=== PATIENT | female | born 1945 | race Caucasian/White ===

== ENCOUNTER → 2017-01-17 | Outpatient (CLI) | payer BC ==
[~2017-01-17] MED LIST: ASPEC81 PO; CRG25 PO; ESCI1TAB10 PO; GLC500 PO; HYDC25 PO; MOME50SP5; MTRUNK PO; PANT40TA PO; SIMV40TA2 PO
--- NOTE | 2017-01-17 14:28 | MAMMOGRAPHY REPORT ---
BILATERAL DIGITAL SCREENING MAMMOGRAM WITH CAD: 01/17/2017 CLINICAL HISTORY: Routine screening. Patient has no complaints. TECHNIQUE: Bilateral CC and MLO views were obtained. Current study was also evaluated with a Comput er Aided Detection (CAD) system. COMPARISON: Comparison is made to exams dated: 01/13/2016 mammogram, 01/09/2015 mammogram, 01/09/2015 ultrasound - [facility], 03/04/2009, and 11/23/2006. BREAST COMPOSITION: The tissue of both breasts is almost entirely fatty. FINDINGS: The parenchymal pattern is unchanged. No developing mass, architectural distortion or clu ster of suspicious microcalcifications is seen in either breast. IMPRESSION: ACR BI-RADS CATEGORY 2: BENIGN There is no mammographic evidence of malignancy. A 1 year screening mammogram is recommended. The p atient will receive written notification of the results. Approximately 10% of breast cancers are not detected with mammography. A negative mammographic repor t should not delay biopsy if a clinically suggestive mass is present. Bobbi Lopez M.D. ay/:01/17/2017 14:04:40 Electric Motor Assembler: Doris WOOD(Susanna)(Ramirez), [facility] letter sent: Normal 1/2 BI-RADS Code: ACR BI-RADS Category 2: Benign
== END | disposition home or self-care (01) ==
LOC: C.MAMM 08:00
PROVIDERS: ATTEND Family Medicine
DX: Z12.31 Encounter for screening mammogram for malignant neoplasm of breast (principal)

== ENCOUNTER → 2017-01-24 | Outpatient (CLI) | payer BC ==
[~2017-01-24] MED LIST changes: +ASPI81TA28 PO; +ATOR-24 PO; +CARV25TA PO; +CLOP1TAB15 PO; +HYDR12.55 PO; +IRBE1TAB48 PO; +METF1TAB53 PO; +MISC1TAB85 PO; +MULT-506 PO; +SERT1TAB88 PO
--- NOTE | 2017-01-24 13:33 | DIAGNOSTIC IMAGING REPORT ---
RIGHT SHOULDER MIN 2 VIEWS CLINICAL HISTORY: RIGHT SHOULDER PAIN Right pain COMPARISON: None. DISCUSSION: The bones and joint spaces appear intact. There is no evidence of fracture, dislocation or bony disease. There is no evidence for soft tissue swelling. IMPRESSION: Negative study. Electronically signed by: Coleman David M.D. 01/24/2017 1:32 PM Dictated Date/Time: 01/24/2017 1:32 PM
== END | disposition home or self-care (01) ==
LOC: C.RDSM 13:26
PROVIDERS: ATTEND Family Medicine
DX: M25.519 Pain in unspecified shoulder (principal)

== ENCOUNTER 2017-09-23 22:02 | Inpatient (IN) | payer BC, OTHER ==
[~2017-09-23] VITALS: Ht 157.5 cm; Wt 92.3 kg
[~2017-09-23 22:02] MED LIST changes: -ASPI81TA28 PO; -ATOR-24 PO; -CARV25TA PO; -CLOP1TAB15 PO; -HYDR12.55 PO; -IRBE1TAB48 PO; -METF1TAB53 PO; -MISC1TAB85 PO; -MULT-506 PO; -SERT1TAB88 PO
--- NOTE | 2017-09-23 22:32 | EMERGENCY ROOM VISIT NOTE ---
History Report prepared by Lettyibney: Jaci Ontiveros Under the Supervision of: Dr. Paulino Kwon D.O. First contact with patient: 22:15 Chief Complaint: CONFUSION Stated Complaint: CONFUSION,DISORIENTED History of Present Illness The patient is a 72 year old female who presents to the Emergency Room with complaints of persistent confusion starting earlier this evening. The patient was at a [employer] today when she started to become confused. She could not remember who filled her cup. Her had just filled her cup. She also forgot which platters she had brought to the libertarian. She left her car at the libertarian. She still feels confused. She cannot remember what happened at the libertarian. She was drinking some wine. She denies any weakness, headache, vision changes, or speech problems. She has a history of transient global amnesia. She was told that she might have had a mini stroke at that time. She is on 81 mg of aspirin a day. She is not on any other blood thinners. Source of History: patient, family Onset: earlier this evening Position: other (global) Quality: other (confusion) Timing: other (persistent) Associated Symptoms: No headache, No weakness Note: Pt denies vision changes or speech problems. Review of Systems See HPI for pertinent positives and negatives. A total of ten systems were reviewed and were otherwise negative. Past Medical & Surgical Medical Problems: (1) TIA (transient ischemic attack) (2) Transient global amnesia Family History No pertinent family history stated. Social History Smoking Status: Former Smoker Marital Status: Current/Historical Medications Scheduled Aspirin (Aspirin EC Low Dose), 81 MG PO QAM Carvedilol (Coreg *), 25 MG PO BID Escitalopram Oxalate (Lexapro), Unknown Dose PO DAILY Hydrochlorothiazide (Hctz *), 12.5 MG PO DAILY Ibuprofen (Motrin Unknown Dose), 200-600 MG PO UD Irbesartan (Irbesartan), 150 MG PO DAILY Metformin HCL (Glucophage *), 1,000 MG PO BID Mometasone Furoate (Nasonex), 2 SPRAYS NA DAILY Pantoprazole (Protonix), 40 MG PO DAILY Sertraline HCl (Sertraline HCl), 25 MG PO DAILY Simvastatin (Zocor), Unknown Dose PO QPM Allergies Coded Allergies: Erythromycin (Unverified Allergy, Unknown, rash, 09/23/17) MAGNUS Inhibitors (Verified Adverse Reaction, Mild, COUGH, 09/23/17) Physical Exam Vital Signs Date Time Temp Pulse Resp B/P (MAP) Pulse Ox O2 Delivery O2 Flow Rate FiO2 09/23/17 23:30 77 16 155/87 96 Room Air 09/23/17 23:03 79 16 147/87 98 Room Air 09/23/17 22:36 82 09/23/17 22:34 96 Room Air 09/23/17 22:09 36.9 84 18 169/86 96 Room Air Physical Exam GENERAL: Awake, alert, well-appearing, in no distress HENT: Normocephalic, atraumatic. Oropharynx unremarkable. EYES: Normal conjunctiva. Sclera non-icteric. NECK: Supple. No nuchal rigidity. FROM. No JVD. RESPIRATORY: Clear to auscultation. CARDIAC: Regular rate, normal rhythm. Extremities warm and well perfused. Pulses equal. ABDOMEN: Soft, non-distended. No tenderness to palpation. No rebound or guarding. No masses. RECTAL: Deferred. MUSCULOSKELETAL: Chest examination reveals no tenderness. The back is symmetrical on inspection without obvious abnormality. There is no CVA tenderness to palpation. No joint edema. LOWER EXTREMITIES: Calves are equal size bilaterally and non-tender. No edema. No discoloration. NEURO: Normal sensorium. No sensory or motor deficits noted. SKIN: No rash or jaundice noted. Medical Decision & Procedures ER Provider Diagnostic Interpretation: Radiology results as stated below per my review and radiologist interpretation CT SCAN OF THE BRAIN WITHOUT IV CONTRAST CLINICAL HISTORY: Change in mental status. COMPARISON STUDY: CT of the brain dated 10/18/2015. TECHNIQUE: Unenhanced axial CT scan of the brain is performed from the vertex to the skull base. CT DOSE: 537.48 mGy.cm FINDINGS: Brain parenchyma: There are age-related involutional changes noting mild subcortical and periventricular microangiopathic change. There is no hemorrhage, mass effect, or evidence of acute territorial ischemia by CT criteria. Gaming-white matter is preserved. No extra-axial fluid collection is seen. Ventricles, sulci, cisterns: Prominent secondary to involutional change. Intracranial vasculature: There is atherosclerotic calcification of the cavernous carotid and vertebral arteries. Calvarium: Unremarkable. Sinuses and mastoids: The visualized paranasal sinuses are clear. The mastoid air cells are well pneumatized. Orbits: The bony orbits are grossly intact. There is evidence of bilateral ocular lens surgery. IMPRESSION: There is no hemorrhage, mass effect, or evidence of acute territorial ischemia by CT criteria. Electronically signed by: Saurabh Whitfield M.D. 09/23/2017 11:02 PM Dictated Date/Time: 09/23/2017 11:00 PM Laboratory Results 09/23/17 22:30 Red Blood Count 4.43, Mean Corpuscular Volume 91.0, Mean Corpuscular Hemoglobin 32.1, Mean Corpuscular Hemoglobin Concent 35.2, Mean Platelet Volume 10.6, Neutrophils (%) (Auto) 61.0, Lymphocytes (%) (Auto) 24.2, Monocytes (%) (Auto) 11.0, Eosinophils (%) (Auto) 2.6, Basophils (%) (Auto) 0.9, Neutrophils # (Auto ) 3.56, Lymphocytes # (Auto) 1.41, Monocytes # (Auto) 0.64, Eosinophils # (Auto ) 0.15, Basophils # (Auto) 0.05 09/23/17 22:30 Test 09/23/17 22:30 09/23/17 22:33 09/23/17 22:40 White Blood Count 5.83 K/uL (4.8-10.8) Red Blood Count 4.43 M/uL (4.2-5.4) Hemoglobin 14.2 g/dL (12.0-16.0) Hematocrit 40.3 % (37-47) Mean Corpuscular Volume 91.0 fL (80-100) Mean Corpuscular Hemoglobin 32.1 pg (25-34) Mean Corpuscular Hemoglobin Concent 35.2 g/dl (32-36) Platelet Count 216 K/uL (130-400) Mean Platelet Volume 10.6 fL (7.4-10.4) Neutrophils (%) (Auto) 61.0 % Lymphocytes (%) (Auto) 24.2 % Monocytes (%) (Auto) 11.0 % Eosinophils (%) (Auto) 2.6 % Basophils (%) (Auto) 0.9 % Neutrophils # (Auto) 3.56 K/uL (1.4-6.5) Lymphocytes # (Auto) 1.41 K/uL (1.2-3.4) Monocytes # (Auto) 0.64 K/uL (0.11-0.59) Eosinophils # (Auto) 0.15 K/uL (0-0.5) Basophils # (Auto) 0.05 K/uL (0-0.2) RDW Standard Deviation 42.2 fL (36.4-46.3) RDW Coefficient of Variation 12.8 % (11.5-14.5) Immature Granulocyte % (Auto) 0.3 % Immature Granulocyte # (Auto) 0.02 K/uL (0.00-0.02) Prothrombin Time 10.4 SECONDS (9.0-12.0) Prothromb Time International Ratio 1.0 (0.9-1.1) Activated Partial Thromboplast Time 24.8 SECONDS (21.0-31.0) Partial Thromboplastin Ratio 1.0 Anion Gap 13.0 mmol/L (3-11) Est Creatinine Clear Calc Drug Dose 68.3 ml/min Estimated GFR () 85.3 Estimated GFR (Non- 73.6 BUN/Creatinine Ratio 25.6 (10-20) Calcium Level 8.8 mg/dl (8.5-10.1) Magnesium Level 2.0 mg/dl (1.8-2.4) Troponin I < 0.015 ng/ml (0-0.045) Bedside Glucose 102 mg/dl (70-90) Bedside Prothrombin Time INR 1.0 (0.9-1.1) Laboratory results reviewed by me ECG Indication: altered mental status Rate (beats per minute): 80 Rhythm: sinus rhythm Findings: no acute ischemic change, other (left ventricular hypertrophy, normal axis, normal intervals) ED Course 2218: The patient was evaluated in room C3. A complete history and physical exam was performed. 2323: Upon reexamination, the patient was stable. I discussed the test results and treatment plan with her and her family. The patient will be evaluated for further management. 2330: I discussed the patient's case with Dr. Valdez, [facility] hospitalist. The patient will be evaluated for further treatment and disposition. Medical Decision Differential diagnoses include but are not limited to; TIA, CVA, transient global amnesia, alcohol intoxication, metabolic derangement, dehydration. Patient's symptoms started at 2030 this evening. Patient's had a history of transient global amnesia 2 years ago. Patient has retrograde confusion as to events earlier today. Patient's NIH score on presentation is 0. Patient is currently not a TPA candidate. On repeat examination the patient is nonfocal does have some slight retrograde confusion and an NIH score of 0 again. The case was discussed with the [facility] hospitalist for admission Medication Reconcilliation Current Medication List: was personally reviewed by me Blood Pressure Screening Patient's blood pressure: Elevated blood pressure Blood pressure disposition: Elevated BP felt to be situational Consults Time Called: 2324 Consulting Physician: Dr. Valdez [facility] hospitalist Returned Call: [phone] Discussed the patient's case. The patient will be evaluated for further treatment and disposition. Impression Primary Impression: TIA (transient ischemic attack) Scribe Attestation The scribe's documentation has been prepared under my direction and personally reviewed by me in its entirety. I confirm that the note above accurately reflects all work, treatment, procedures, and medical decision making performed by me. Departure Information Dispostion Being Evaluated By Hospitalist Referrals Pranav Montez M.D. (PCP) Patient Instructions My [facility] Stroke History Time Last Known Well 2030 Stroke t-PA Criteria Reviewed Does NOT meet criteria for t-PA Reason t-PA Not Given Treatment not indicated
[2017-09-23 22:48] LABS: BASO % 0.9 %; BASO ABS # 0.05 K/uL (0-0.2); COMPLETE YES; EOS % 2.6 %; HEMATOCRIT 40.3 % (37-47); IG% 0.3 %; LYMPH % 24.2 %; LYMPH ABS # 1.41 K/uL (1.2-3.4); MEAN CORPUSCULAR HEMOGLOBIN 32.1 pg (25-34); MEAN CORPUSCULAR HGB CONC 35.2 g/dl (32-36); MEAN PLATELET VOLUME 10.6 fL (7.4-10.4); PLATELET COUNT 216 K/uL (130-400); RED BLOOD COUNT 4.43 M/uL (4.2-5.4); WHITE BLOOD COUNT 5.83 K/uL (4.8-10.8)
[2017-09-23 22:59] LABS: PROTHROMBIN TIME (PATIENT) 10.4 SECONDS (9.0-12.0)
--- NOTE | 2017-09-23 23:04 | DIAGNOSTIC IMAGING REPORT ---
CT SCAN OF THE BRAIN WITHOUT IV CONTRAST CLINICAL HISTORY: Change in mental status. COMPARISON STUDY: CT of the brain dated 10/18/2015. TECHNIQUE: Unenhanced axial CT scan of the brain is performed from the vertex to the skull base. CT DOSE: 537.48 mGy.cm FINDINGS: Brain parenchyma: There are age-related involutional changes noting mild subcortical and periventricular microangiopathic change. There is no hemorrhage, mass effect, or evidence of acute territorial ischemia by CT criteria. Gaming-white matter is preserved. No extra-axial fluid collection is seen. Ventricles, sulci, cisterns: Prominent secondary to involutional change. Intracranial vasculature: There is atherosclerotic calcification of the cavernous carotid and vertebral arteries. Calvarium: Unremarkable. Sinuses and mastoids: The visualized paranasal sinuses are clear. The mastoid air cells are well pneumatized. Orbits: The bony orbits are grossly intact. There is evidence of bilateral ocular lens surgery. IMPRESSION: There is no hemorrhage, mass effect, or evidence of acute territorial ischemia by CT criteria. Electronically signed by: Saurabh Whitfield M.D. 09/23/2017 11:02 PM Dictated Date/Time: 09/23/2017 11:00 PM
[2017-09-23 23:07] LABS: BLOOD UREA NITROGEN 21 mg/dl (7-18); BUN/CREATININE RATIO 25.6 (10-20); CALCIUM 8.8 mg/dl (8.5-10.1); CARBON DIOXIDE 22 mmol/L (21-32); CHLORIDE 106 mmol/L (98-107); CREATININE 0.81 mg/dl (0.60-1.20); GLUCOSE 103 mg/dl (70-99); POTASSIUM 3.3 mmol/L (3.5-5.1); SODIUM 141 mmol/L (136-145)
[2017-09-23] MEDS ORDERED: IRBE1TAB48 PO (23:38)
[2017-09-23] MEDS ORDERED: SERT1TAB88 PO (23:38)
[2017-09-23] MEDS ORDERED: ASPI81TA28 PO (23:40)
[2017-09-23] MEDS ORDERED: MISC1TAB85 PO (23:40)
[2017-09-23] MEDS ORDERED: MULT-506 PO (23:40)
[2017-09-23] MEDS ORDERED: METF1TAB53 PO (23:43)
[2017-09-23] MEDS ORDERED: HYDR12.55 PO (23:44)
[2017-09-23] MEDS ORDERED: CARV25TA PO (23:44)
--- NOTE | 2017-09-23 23:59 | History and Physical ---
History & Physical Date & Time of Service: Sep 23, 2017 at 23:58 Chief Complaint: Confusion,Disoriented Primary Care Physician: Pranav Montez M.D. History of Present Illness Source: patient, hospital records This is a 72 yo f with a history of DM that is presenting to us after an acute episode of confusion this evening during a [employer]. The patient's gave the history as the patient is unaware of the events during her confusion. She was at the democrat and suddenly got very confused however was able to find words. Her brought her to the hospital but by the time they arrived the hospital the symptoms improved/ resolved. She has absolutely no recollection of what had occurred during this episode. She was oriented x3 during the interview. She notes she had an episode like this before and was told she had transient global amnesia. This occurred two years prior and she had a w/u and no source found. She notes he mother does have a history of recurring TIA/ strokes. She also notes she has been taking an Aleve daily for 6 weeks for right shoulder pain. Past Medical/Surgical History Medical Problems: (1) Transient global amnesia Status: Resolved Family History Stroke MOTHER Social History Smoking Status: Former Smoker Smokeless Tobacco Use: No Alcohol Use: socially Drug Use: none Marital Status: Housing status: lives with family Occupational Status: retired Immunizations History of Influenza Vaccine: Yes Influenza Vaccine Date: Jul 28, 2010 History of Tetanus Vaccine?: Yes Tetanus Immunization Date: Oct 28, 2006 History of Pneumococcal: No History of Hepatitis B Vaccine: No Multi-Drug Resistant Organisms History of MDRO: No Allergies Coded Allergies: Erythromycin (Unverified Allergy, Unknown, rash, 09/23/17) MAGNUS Inhibitors (Verified Adverse Reaction, Mild, COUGH, 09/23/17) Home Medications Scheduled Aspirin (Aspirin Ec), 81 MG PO DAILY Carvedilol (Coreg), 25 MG PO BID Hydrochlorothiazide (Hydrochlorothiazide), 1 TAB PO DAILY Irbesartan (Irbesartan), 150 MG PO DAILY Metformin Hcl (Glucophage Ext Rel), 1,000 MG PO DAILY Misc Natural Products (Glucosamine Chondroitin T), 1 TAB PO BID Multivitamin (Multivitamin), 1 TAB PO DAILY Sertraline HCl (Sertraline HCl), 25 MG PO DAILY Review of Systems Constitutional: No fever, No chills Eyes: No worsening of vision ENT: No hearing loss Respiratory: No cough, No sputum, No wheezing, No shortness of breath, No dyspnea on exertion, No dyspnea at rest Cardiovascular: No chest pain Abdomen: No pain, No nausea, No vomiting, No diarrhea, No constipation Musculoskeletal: No joint pain, No muscle pain Genitourinary - Female: No dysuria Neurologic: No weakness, No numbness/tingling, No balance problems Endocrine: + fatigue Hematologic / Lymphatic: No abnormal bleeding/bruising Integumentary: No rash Physical Exam Vital Signs Date Time Temp Pulse Resp B/P (MAP) Pulse Ox O2 Delivery O2 Flow Rate FiO2 09/23/17 23:30 77 16 155/87 96 Room Air 09/23/17 23:03 79 16 147/87 98 Room Air 09/23/17 22:36 82 09/23/17 22:34 96 Room Air 09/23/17 22:09 36.9 84 18 169/86 96 Room Air General Appearance: no apparent distress Head: normocephalic, atraumatic Eyes: normal inspection ENT: normal ENT inspection, hearing grossly normal Neck: supple Respiratory/Chest: normal breath sounds, no respiratory distress, no accessory muscle use Cardiovascular: regular rate, rhythm, no murmur, normal peripheral pulses Abdomen/GI: normal bowel sounds, non tender, soft Back: normal inspection, no CVA tenderness Extremities/Musculoskelatal: normal inspection, no calf tenderness, no pedal edema Neurologic/Psych: clinical technician II-XII nml as tested, no motor/sensory deficits, alert, normal mood/affect, normal reflexes, oriented x 3 Skin: normal color, warm/dry, no rash Lymphatic: no adenopathy Diagnostics Laboratory Results Results Past 24 Hours Test 09/23/17 22:30 09/23/17 22:33 09/23/17 22:40 Range/Units White Blood Count 5.83 4.8-10.8 K/uL Red Blood Count 4.43 4.2-5.4 M/uL Hemoglobin 14.2 12.0-16.0 g/dL Hematocrit 40.3 37-47 % Mean Corpuscular Volume 91.0 80-100 fL Mean Corpuscular Hemoglobin 32.1 25-34 pg Mean Corpuscular Hemoglobin Concent 35.2 32-36 g/dl Platelet Count 216 130-400 K/uL Mean Platelet Volume 10.6 7.4-10.4 fL Neutrophils (%) (Auto) 61.0 % Lymphocytes (%) (Auto) 24.2 % Monocytes (%) (Auto) 11.0 % Eosinophils (%) (Auto) 2.6 % Basophils (%) (Auto) 0.9 % Neutrophils # (Auto) 3.56 1.4-6.5 K/uL Lymphocytes # (Auto) 1.41 1.2-3.4 K/uL Monocytes # (Auto) 0.64 0.11-0.59 K/uL Eosinophils # (Auto) 0.15 0-0.5 K/uL Basophils # (Auto) 0.05 0-0.2 K/uL RDW Standard Deviation 42.2 36.4-46.3 fL RDW Coefficient of Variation 12.8 11.5-14.5 % Immature Granulocyte % (Auto) 0.3 % Immature Granulocyte # (Auto) 0.02 0.00-0.02 K/uL Prothrombin Time 10.4 9.0-12.0 SECONDS Prothromb Time International Ratio 1.0 0.9-1.1 Activated Partial Thromboplast Time 24.8 21.0-31.0 SECONDS Partial Thromboplastin Ratio 1.0 Sodium Level 141 136-145 mmol/L Potassium Level 3.3 3.5-5.1 mmol/L Chloride Level 106 98-107 mmol/L Carbon Dioxide Level 22 21-32 mmol/L Anion Gap 13.0 3-11 mmol/L Blood Urea Nitrogen 21 7-18 mg/dl Creatinine 0.81 0.60-1.20 mg/dl Est Creatinine Clear Calc Drug Dose 68.3 ml/min Estimated GFR () 85.3 Estimated GFR (Non- 73.6 BUN/Creatinine Ratio 25.6 10-20 Random Glucose 103 70-99 mg/dl Calcium Level 8.8 8.5-10.1 mg/dl Magnesium Level 2.0 1.8-2.4 mg/dl Troponin I < 0.015 0-0.045 ng/ml Bedside Glucose 102 70-90 mg/dl Bedside Prothrombin Time INR 1.0 0.9-1.1 Diagnostic Radiology [~ rep ct add3]] CT SCAN OF THE BRAIN WITHOUT IV CONTRAST CLINICAL HISTORY: Change in mental status. COMPARISON STUDY: CT of the brain dated 10/18/2015. TECHNIQUE: Unenhanced axial CT scan of the brain is performed from the vertex to the skull base. CT DOSE: 537.48 mGy.cm FINDINGS: Brain parenchyma: There are age-related involutional changes noting mild subcortical and periventricular microangiopathic change. There is no hemorrhage, mass effect, or evidence of acute territorial ischemia by CT criteria. Agming-white matter is preserved. No extra-axial fluid collection is seen. Ventricles, sulci, cisterns: Prominent secondary to involutional change. Intracranial vasculature: There is atherosclerotic calcification of the cavernous carotid and vertebral arteries. Calvarium: Unremarkable. Sinuses and mastoids: The visualized paranasal sinuses are clear. The mastoid air cells are well pneumatized. Orbits: The bony orbits are grossly intact. There is evidence of bilateral ocular lens surgery. IMPRESSION: There is no hemorrhage, mass effect, or evidence of acute territorial ischemia by CT criteria. Impression Assessment and Plan This is a 72 yo f with a history of DM that is presenting to us with acute episode of confusion with retrograde amnesia. Metabolic encephalopathy secondary to ischemia vs idiopathic vs infectious tele admission HBA1C, FLP, coag labs - echo, MRI pending - US of carotids pending - consult neuro - neuro checks per protocol Hypokalemia - replete and recheck in the am DMII - hold metformin - insulin ISS Depression - Sertraline 25 mg cont HTN - cont Carvedilol 25 camden bid, Avapro 150 mg daily, HCTZ 12.5 mg DVT Prophylaxis scd Attending addendum: I have physically seen this patient, have supervised the medical residents activities, and agree with the H&P unless as otherwise noted. Assessment and Plan: Resolved confusion state/transient amnesia Previous diagnoses of TGA, that she reports at that time was accompanied by nausea and vomiting, which did not occur this time. The patient will be admitted to telemetry for serial cardiac enzymes, cardiac rhythm monitoring and a 2-D echocardiogram with Dopplers. CT of head without acute event Order MRI brain combo, carotid Dopplers, and MRA of head without contrast. Consult PT/OT/social insurance specialist/neurology She typically takes aspirin 81 mg daily, but reports taking naproxen daily for the past 6 weeks for right shoulder pain. Question as to whether this interfered with the antiplatelet effect of aspirin, which then lead to her symptoms. Hypertension-- Continue with carvedilol, Avapro. Hold HCTZ due to hypokalemia Diabetes mellitus-- Hold metformin in the acute setting. Place on Accu-Cheks before meals and at bedtime with NovoLog coverage per scale. Level of Care Telemetry Advanced Directives Existing Advance Directive: No Existing Living Will: No Existing Power of Stroke Program Coordinator: No Resuscitation Status FULL RESUSCITATION VTE Prophylaxis VTE Risk Assessment Done? Y/N: Yes Risk Level: Moderate Given or contraindicated: SCD's Social Service Consult None Apply Note Total Time: Critical Care 30 - 74 minutes Additional Copies To Pranav Montez M.D.
[2017-09-24] MEDS ORDERED: PHARMACIST DISCHARGE MED REC CONSULT PRN ×2
[2017-09-24] MEDS ORDERED: LORAZEPAM 0.5 MG TAB PO STA (00:15)
[2017-09-24] MEDS ORDERED: DEXTROSE 50% 50 ML SYR IV PRN (00:45)
[2017-09-24] MEDS ORDERED: GLUCAGON FOR INJ 1 MG VIAL SQ PRN (00:45)
[2017-09-24] MEDS ORDERED: GLUCOSE 10 TABS/TUBE PO PRN (00:45)
[2017-09-24] MEDS ORDERED: GLUCOSE 40% GEL 15 GM TUBE PO PRN (00:45)
[2017-09-24 00:51] VITALS: BP 119/78; PULSE 70; TEMP 37; O2SAT 96; Ht 157.5 cm; Wt 92.3 kg
[2017-09-24 04:22] VITALS: BP 126/80; PULSE 71; TEMP 36.9; O2SAT 95
[2017-09-24] MEDS ORDERED: POTASSIUM CHLORIDE 20 MEQ TABCR PO STA (04:57)
[2017-09-24] MEDS: INSULIN ASPART 100 UNITS/ML 3 ML PEN SC SCH ×2 (07:00→11:00)
[2017-09-24 07:12] LABS: BASO % 1.1 %; BASO ABS # 0.05 K/uL (0-0.2); COMPLETE YES; EOS % 3.3 %; HEMATOCRIT 37.8 % (37-47); IG% 0.2 %; LYMPH ABS # 1.26 K/uL (1.2-3.4); MEAN CELL VOLUME 91.7 fL (80-100); MEAN CORPUSCULAR HGB CONC 34.9 g/dl (32-36); MEAN PLATELET VOLUME 10.3 fL (7.4-10.4); MONO % 11.3 %; NEUT % 56.1 %; PLATELET COUNT 186 K/uL (130-400); RED BLOOD COUNT 4.12 M/uL (4.2-5.4)
[2017-09-24 07:22] LABS: ESTIMATED AVERAGE GLUCOSE 111 mg/dl; HA1C FLAG Normal (Normal)
[2017-09-24 07:46] LABS: BUN/CREATININE RATIO 27.8 (10-20); CALCIUM 8.4 mg/dl (8.5-10.1); CHOLESTEROL/HDL RATIO 2.9; CREATININE 0.72 mg/dl (0.60-1.20); POTASSIUM 3.9 mmol/L (3.5-5.1)
[2017-09-24 07:50] VITALS: BP 138/72; PULSE 63; TEMP 37.1; O2SAT 93
--- NOTE | 2017-09-24 08:55 | DIAGNOSTIC IMAGING REPORT ---
CAROTID DOPPLER NECK ART CLINICAL HISTORY: 72 years-old Female with Stroke. Acute strokelike symptoms COMPARISON: CT head 09/23/2017, carotid Doppler 10/18/2015 TECHNIQUE: Multiple real time sonographic images of the carotid bifurcations were obtained assessing lima scale, color Doppler and spectral wave form appearance FINDINGS: RIGHT INTERNAL CAROTID: The peak systolic velocity measured 48 cm/sec. The end diastolic velocity measured 11 cm/sec. The ICA to CCA ratio measured 0.8 which correlates with a stenosis of 0-50%. Moderate mixed plaquing of the right carotid ball and proximal right ICA. LEFT INTERNAL CAROTID: The peak systolic velocity measured 93 cm/sec. The end diastolic velocity measured 24 cm/sec. The ICA to CCA ratio measured 1.0 which correlates with a stenosis of 0-50%. Mild mixed plaquing of the left carotid bulb and proximal left ICA. There is normal antegrade vertebral flow bilaterally. Incidental note is made of a solid left thyroid nodule which is hypoechoic, 2.7 x 1.5 x 2.1 cm. IMPRESSION: 1. Moderate right and mild left carotid bulb atherosclerotic plaquing without hemodynamically significant stenosis. 2. Normal antegrade vertebral flow bilaterally. 3. Incidental note is made of a solid left thyroid nodule which is hypoechoic, 2.7 x 1.5 x 2.1 cm. The above report was generated using voice recognition software. It may contain grammatical, syntax or spelling errors. Electronically signed by: Johnny Burgess M.D. 09/24/2017 8:54 AM Dictated Date/Time: 09/24/2017 8:49 AM
[2017-09-24] MEDS ORDERED: CARVEDILOL 25 MG TAB PO SCH (09:00)
[2017-09-24] MEDS ORDERED: IRBESARTAN 150 MG TAB PO SCH (09:00)
[2017-09-24] MEDS ORDERED: MULTIVITAMIN TAB PO SCH (09:00)
[2017-09-24] MEDS ORDERED: NATURAL PRODUCTS PO SCH (09:00)
[2017-09-24] MEDS ORDERED: ASPIRIN 81 MG ECTAB PO SCH (09:00)
[2017-09-24] MEDS ORDERED: SERTRALINE HCL 50 MG TAB PO SCH (09:00)
[2017-09-24] MEDS ORDERED: HYDROCHLOROTHIAZIDE 25 MG TAB PO SCH (09:00)
--- NOTE | 2017-09-24 10:11 | Neurology Consultation ---
Neurology Consultation Date of Consultation: Sep 24, 2017. Attending Physician: Delvin Jones D.O. Primary Care Physician: Pranav Montez M.D. Reason for Consultation: Transient global amnesia History of Present Illness Source: patient, hospital records The patient is a 72-year-old female who presented to the emergency department overnight for further evaluation of confusion that began acutely while at a [employer] dinner alliance party earlier in the evening. The patient recalls being at the alliance party with her spouse and friends. She reportedly did not recall who filled up her wineglass and did not recall what specific dish she had brought to the alliance party. She apparently did not have any other significant neurological impairments such as speech changes, vision loss, weakness, or loss of sensation. The episode resolved within a few hours although she continues to have some residual amnesia for the specific events. She remembers her assessment in the emergency department and eventually being transferred to her current room on the medical floor. She is currently pleasant, cooperative, and does not have any specific complaints such as headache, vision change, speech changes, or dizziness. She has been ambulating freely in her hospital room, use the commode without difficulty, and has eaten her breakfast. She would like to go home. History notable for an episode of transient global amnesia that occurred 2 years ago with an unremarkable evaluation at that time including carotid ultrasound and an MRI of the brain which revealed mild, chronic, small vessel disease and a prominent perivascular space within the left basal ganglia. She has been taking a daily baby aspirin. History also notable for diabetes mellitus and hypertension. A CT of the head completed at the time of this most recent presentation was negative for hemorrhage or acute process. There is mild chronic small vessel ischemic disease as well as a previous identified prominent left basal ganglia perivascular space. I reviewed the images was radiologist's interpretation of this test. A CBC and basic metabolic panel are both unremarkable. An electrocardiogram reveals sinus rhythm, 80 bpm. An up-to-date carotid duplex has also been completed. There is no evidence of hemodynamically significant stenosis in the extracranial vessels. There is an incidental thyroid nodule. Past Medical/Surgical History Medical Problems: (1) Altered mental status Status: Acute Family History Family history notable for stroke in the mother Social History Smokeless Tobacco Use: No Alcohol Use: socially Drug Use: none Marital Status: Occupation Status: retired Allergies Coded Allergies: Erythromycin (Unverified Allergy, Unknown, rash, 09/23/17) MAGNUS Inhibitors (Verified Adverse Reaction, Mild, COUGH, 09/23/17) Current Inpatient Medications Current Inpatient Medications Medications (Trade) Dose Ordered Sig/Loraine Route Start Time Stop Time Status Last Admin Dose Admin Aspirin (Ecotrin Tab) 81 mg DAILY PO 09/24/17 09:00 10/24/17 08:59 09/24/17 08:20 81 MG Carvedilol (Coreg Tab) 25 mg BID PO 09/24/17 09:00 10/24/17 08:59 09/24/17 08:19 25 MG Irbesartan (Avapro Tab) 150 mg DAILY PO 09/24/17 09:00 10/24/17 08:59 09/24/17 08:19 150 MG Multivitamins (Multivitamin Tab) 1 tab DAILY PO 09/24/17 09:00 10/24/17 08:59 09/24/17 08:21 1 TAB Hydrochlorothiazide (Hydrochlorothiazide Tab) 12.5 mg QAM PO 09/24/17 09:00 10/24/17 08:59 09/24/17 08:20 12.5 MG Sertraline HCl (Zoloft Tab) 25 mg DAILY PO 09/24/17 09:00 10/24/17 08:59 09/24/17 08:22 25 MG Insulin Aspart (novoLOG ASPART) SLIDING SCALE G... ACHS SC 09/24/17 07:00 10/24/17 06:59 Miscellaneous Information (Pharmacist Discharge Med Rec Consult) 1 ea UD PRN N/A 09/24/17 00:00 10/24/17 00:00 Glucose (Glucose 40% Gel) 15-30 GRAMS 15 GRAMS... UD PRN PO 09/24/17 00:45 10/24/17 00:44 Glucose (Glucose Chew Tab) 4-8 Tablets 4 Tabl... UD PRN PO 09/24/17 00:45 10/24/17 00:44 Dextrose (Dextrose 50% 50ML Syringe) 25-50ML OF 50% DW IV FOR... UD PRN IV 09/24/17 00:45 10/24/17 00:44 Glucagon (Glucagon Inj) 1 mg UD PRN SQ 09/24/17 00:45 10/24/17 00:44 Review of Systems Constitutional: No fevers or chills Eyes: No vision loss or diplopia ENT: No vertigo or hearing loss Cardiovascular: No chest pain or palpitations Respiratory: No coughing wheezing or shortness of breath Musculoskeletal: No myalgias or arthralgias Neurological: As per history of present illness Psychiatric: Patient does endorse some increased stressors recently. History of depression stable on Zoloft. A full 10 point review of systems was obtained from this patient with pertinent positives and negatives described in the history of present illness and otherwise listed above. All remaining systems reviewed and are negative. Physical Exam Vital Signs (Past 24 Hrs): Date Time Temp Pulse Resp B/P (MAP) Pulse Ox O2 Delivery O2 Flow Rate FiO2 09/24/17 07:50 37.1 63 18 138/72 (94) 93 09/24/17 04:22 36.9 71 22 126/80 (95) 95 Room Air 09/24/17 04:00 Room Air 09/24/17 00:51 37.0 70 16 119/78 96 Room Air 09/24/17 00:19 76 16 152/93 97 09/24/17 00:10 76 16 152/93 97 Room Air 09/23/17 23:30 77 16 155/87 96 Room Air 09/23/17 23:03 79 16 147/87 98 Room Air 09/23/17 22:36 82 09/23/17 22:34 96 Room Air 09/23/17 22:09 36.9 84 18 169/86 96 Room Air The patient is a well-developed, well-nourished, elderly female. She is sitting up in a bedside chair comfortably, no acute distress. She has just the breakfast. The patient is alert and oriented to person place and time. Recent and remote memory intact. Attention and concentration normal. Patient exhibits a normal spontaneous speech pattern as well as an age-appropriate fund of knowledge and normal vocabulary. Visual kaur full to confrontation. Visual acuity normal. Pupils equal round reactive to light and accommodation. Eye movements normal. No nystagmus. Facial sensation intact. There is normal facial symmetry and strength. No facial droop. Hearing intact to finger rub bilaterally. Palate elevates to midline. Shoulder shrug strength intact bilaterally. Tongue protrudes to midline. Sensation intact to vibration, temperature, proprioception, and light touch in all 4 limbs. Deep tendon reflexes are intact and symmetrical for the arms and legs. Plantar responses downgoing bilaterally. There is no dysdiadochokinesia or dysmetria finger to nose or heel to celaya bilaterally. Ophthalmoscopic examination reveals normal- appearing optic disks and posterior segments. No papilledema or hemorrhages. Carotid pulses normal bilaterally, no bruits to auscultation. Gait and station normal. Muscle strength and tone normal for the arms and legs bilaterally. No atrophy. No abnormal movements observed. Laboratory Results Past 24 Hours: 09/24/17 06:47 Red Blood Count 4.12, Mean Corpuscular Volume 91.7, Mean Corpuscular Hemoglobin 32.0, Mean Corpuscular Hemoglobin Concent 34.9, Mean Platelet Volume 10.3, Neutrophils (%) (Auto) 56.1, Lymphocytes (%) (Auto) 28.0, Monocytes (%) (Auto) 11.3, Eosinophils (%) (Auto) 3.3, Basophils (%) (Auto) 1.1, Neutrophils # (Auto ) 2.52, Lymphocytes # (Auto) 1.26, Monocytes # (Auto) 0.51, Eosinophils # (Auto ) 0.15, Basophils # (Auto) 0.05 09/24/17 06:47 Test 09/23/17 22:30 09/23/17 22:40 09/24/17 06:14 09/24/17 06:47 Prothrombin Time 10.4 SECONDS (9.0-12.0) Prothromb Time International Ratio 1.0 (0.9-1.1) Activated Partial Thromboplast Time 24.8 SECONDS (21.0-31.0) Partial Thromboplastin Ratio 1.0 Magnesium Level 2.0 mg/dl (1.8-2.4) Troponin I < 0.015 ng/ml (0-0.045) Bedside Prothrombin Time INR 1.0 (0.9-1.1) Bedside Glucose 115 mg/dl (70-90) White Blood Count 4.50 K/uL (4.8-10.8) Red Blood Count 4.12 M/uL (4.2-5.4) Hemoglobin 13.2 g/dL (12.0-16.0) Hematocrit 37.8 % (37-47) Mean Corpuscular Volume 91.7 fL (80-100) Mean Corpuscular Hemoglobin 32.0 pg (25-34) Mean Corpuscular Hemoglobin Concent 34.9 g/dl (32-36) Platelet Count 186 K/uL (130-400) Mean Platelet Volume 10.3 fL (7.4-10.4) Neutrophils (%) (Auto) 56.1 % Lymphocytes (%) (Auto) 28.0 % Monocytes (%) (Auto) 11.3 % Eosinophils (%) (Auto) 3.3 % Basophils (%) (Auto) 1.1 % Neutrophils # (Auto) 2.52 K/uL (1.4-6.5) Lymphocytes # (Auto) 1.26 K/uL (1.2-3.4) Monocytes # (Auto) 0.51 K/uL (0.11-0.59) Eosinophils # (Auto) 0.15 K/uL (0-0.5) Basophils # (Auto) 0.05 K/uL (0-0.2) RDW Standard Deviation 43.6 fL (36.4-46.3) RDW Coefficient of Variation 13.1 % (11.5-14.5) Immature Granulocyte % (Auto) 0.2 % Immature Granulocyte # (Auto) 0.01 K/uL (0.00-0.02) Fibrinogen 291 mg/dl (184-400) Anion Gap 7.0 mmol/L (3-11) Est Creatinine Clear Calc Drug Dose 76.9 ml/min Estimated GFR () 98.3 Estimated GFR (Non- 84.9 BUN/Creatinine Ratio 27.8 (10-20) Estimated Average Glucose 111 mg/dl Hemoglobin A1c 5.5 % (4.5-5.6) Calcium Level 8.4 mg/dl (8.5-10.1) Triglycerides Level 111 mg/dl (0-150) Cholesterol Level 181 mg/dl (0-200) HDL Cholesterol 63 mg/dl LDL Cholesterol, Calculated 96 mg/dl VLDL Cholesterol, Calculated 22 mg/dl Cholesterol/HDL Ratio 2.9 Impression This is a 72-year-old female who experienced an episode of transient global amnesia while at a dinner alliance party last night. She did not experience any associated neurological symptoms that would otherwise be concerning for stroke or seizure. She does endorse some personal stressors recently that may have been a contributing factor. She experienced a similar episode 2 years ago. Plan Obtaining an up-to-date brain MRI is probably reasonable to exclude a small acute infarct. Additional neurological testing is not necessary. Continue daily low-dose aspirin. Please contact me if I may be of further assistance.
--- NOTE | 2017-09-24 11:00 | Discharge Instructions ---
Discharge Instructions Date of Service Sep 24, 2017. Admission Reason for Admission: Anmesia (Retrograde), Confusion After Seizure Discharge Discharge Diagnosis / Problem: Transient Global Amnesia Discharge Goals Goal(s): Improve function Activity Recommendations Activity Limitations: resume your previous activity . Instructions / Follow-Up Instructions / Follow-Up You were admitted to [facility] due to an episode of amnesia and confusion. You underwent a CT scan of your brain which was negative for any bleeding or stroke. You also had an ultrasound of the carotid arteries in your neck, and that did not show any significant plaque build up. We checked an ultrasound and electrical of your heart as well, and this showed that your heart is functioning well, with no concerns for irregular heart rhythms or a heart attack. Below is a list of topics we discussed: 1) Diabetes Your HbA1c in the hospital was 5.5, which is actually low enough for you to stop your metformin and continue managing your diabetes with diet and exercise. We will defer this decision to Dr. Montez. In the meantime, continue your excellent exercise regimen and try to stay away from the pasta and cheese unless you're treating yourself! 2) Cholesterol Your cholesterol levels are good, but not optimal if we look at this recent event as a precursor to a TIA. It is therefore recommended that you begin a cholesterol-lowering drug to improve your levels. Currently, your LDL is 96 and non-HDL cholesterol is 118, and you're aiming for an LDL of less than 70 and an non-HDL cholesterol of less than 100. Given that you have had muscle aches with 2 of the statins you have tried, we will defer this decision to Dr. Montez as to which medication to try next. 3) Aspirin Generally, when people have events on aspirin, we change them to Plavix. Please stop taking your aspirin and instead start taking the low dose of Plavix everyday. 4) Thyroid Of note, your ultrasound did show that you have a nodule on your left thyroid gland. This can be worked up in the outpatient setting with your PCP. If you have another episode of amnesia, but have any other symptoms such as slurring of speech, trouble walking, weakness in your arms or legs, or your confusion persists, please come to the emergency department. Current Hospital Diet Patient's current hospital diet: Diabetes Type 2 Diet, AHA Diet (Heart Healthy) Discharge Diet Recommended Diet: AHA Diet (Heart Healthy), Diabetes Type 2 Diet Pending Studies Studies pending at discharge: no Laboratory Results Hemoglobin A1c Test 09/24/17 06:47 Range/Units Estimated Average Glucose 111 mg/dl Hemoglobin A1c 5.5 4.5-5.6 % Lipid Panel Test 09/24/17 06:47 Range/Units Triglycerides Level 111 0-150 mg/dl Cholesterol Level 181 0-200 mg/dl HDL Cholesterol 63 mg/dl Cholesterol/HDL Ratio 2.9 LDL Cholesterol, Calculated 96 mg/dl Medical Emergencies . Who to Call and When: Medical Emergencies: If at any time you feel your situation is an emergency, please call 911 immediately. . Non-Emergent Contact Non-Emergency issues call your: Primary Care Provider . . "Provider Documentation" section prepared by Randy Ramirez. . VTE Core Measure Inpt VTE Proph given/why not?: SCD's
--- NOTE | 2017-09-24 11:11 | ECHOCARDIOGRAM REPORT ---
*NOTICE TO RECEIVING [employer]ENCY This information is strictly Confidential and protected under [place] law. [place] law prohibits you from making any further disclosure of this information unless further disclosure is expressly permitted by the written consent of the person to whom it pertains or is authorized by law. A general authorization for the release of medical or other information is not sufficient for this purpose. Hospital accepts no responsibility if the information is made available to any other person, INCLUDING THE PATIENT. Interpretation Summary * Name: RAHEL RANDALL Study Date: 09/24/2017 08:50 AM BP: 126/80 mmHg * Patient Location: C.2T\S\S236\S\1 HR: 71 * : 1945 (M/d/yyyy) Gender: Female Height: 62 in * Age: 72 yrs Ethnicity: [place] Weight: 203 lb * Ordering Physician: Emmanuelle Valdez * Performed By: Fatoumata Varner RDCS * * Reason For Study: ALOC * BSA: 1.9 m2 * -- Conclusions -- * Compared with 10/18/15 study, no significnt change. * The left ventricle is normal in size. * There is normal left ventricular wall thickness. * Left ventricular systolic function is normal. * Ejection Fraction = 65-70%. * The left ventricular wall motion is normal. * Grade I diastolic dysfunction, (abnormal relaxation pattern). * Apical echodensity most consistent with trabeculae. Procedure Details * A complete two-dimensional transthoracic echocardiogram was performed (2D, M-mode, Doppler and color flow Doppler). * A contrast injection of Definity was performed to improve assessment of LV function. * Contrast was injected into an intravenous site in the left arm. * One vial of Definity ultrasound contrast was diluted in normal saline to a total volume of 10 ml. A total of '4' ml of solution was administered during imaging. * Lot # [id number] of Definity utilized for procedure. * Expiration date 10/10. * The attending nurse who injected the contrast agent was SALVADOR LOPES RN. Left Ventricle * The left ventricle is normal in size. * Apical echodensity most consistent with trabeculae. * There is normal left ventricular wall thickness. * Ejection Fraction = 65-70%. * Left ventricular systolic function is normal. * The left ventricular wall motion is normal. Right Ventricle * The right ventricle is normal in size and function. Atria * The left atrium is mildly dilated. * The right atrium is mildly dilated. * The interatrial septum is intact with no evidence for an atrial septal defect. Mitral Valve * The mitral valve is normal in structure and function. * Significant mitral regurgitation is absent. Tricuspid Valve * The tricuspid valve is normal in structure and function. * There is mild tricuspid regurgitation. * Right ventricular systolic pressure is normal. Aortic Valve * The aortic valve is normal in structure and function. * No hemodynamically significant valvular aortic stenosis. * There is no significant aortic regurgitation. Pulmonic Valve * The pulmonic valve is not well seen, but is grossly normal. * Trace pulmonic valvular regurgitation. Great Vessels * Aortic arch of normal dimension. * No obvious dissection could be visualized. * The pulmonary artery is not well visualized, but is probably normal size. Pericardium/Pleural * There is no pericardial effusion. Great Vessels * Normal inferior vena cava diameter and respiratory variation suggests normal central venous pressure. Left Ventricular Diastolic Function * Grade I diastolic dysfunction, (abnormal relaxation pattern). MMode 2D Measurements and Calculations IVSd 0.55 cm IVSs 1.2 cm LVIDd 5.2 cm LVIDs 3.2 cm LVPWd 0.64 cm LVPWs 1.3 cm IVS/LVPW 0.86 FS 39.0 % EDV(Teich) 128.2 ml ESV(Teich) 39.7 ml EF(Teich) 69.1 % EDV(cubed) 138.8 ml ESV(cubed) 31.5 ml EF(cubed) 77.3 % % IVS thick 116.2 % % LVPW thick 106.8 % LV mass(C)d 100.0 grams LV mass(C)dI 52.0 grams/m\S\2 LV mass(C)s 126.2 grams LV mass(C)sI 65.6 grams/m\S\2 SV(Teich) 88.6 ml SI(Teich) 46.0 ml/m\S\2 SV(cubed) 107.3 ml SI(cubed) 55.8 ml/m\S\2 ACS 10 cm asc Aorta Diam 3.2 cm LVOT diam 1.8 cm LVOT area 2.4 cm\S\2 LVAd ap4 33.5 cm\S\2 LVLd ap4 9.4 cm EDV(MOD-sp4) 98.8 ml EDV(sp4-el) 101.9 ml LVAs ap4 16.0 cm\S\2 LVLs ap4 6.6 cm ESV(MOD-sp4) 32.5 ml ESV(sp4-el) 33.3 ml EF(MOD-sp4) 67.1 % EF(sp4-el) 67.3 % LVAd ap2 30.2 cm\S\2 LVLd ap2 8.3 cm EDV(MOD-sp2) 92.7 ml EDV(sp2-el) 94.0 ml LVAs ap2 14.9 cm\S\2 LVLs ap2 6.3 cm ESV(MOD-sp2) 29.1 ml ESV(sp2-el) 29.9 ml EF(MOD-sp2) 68.6 % EF(sp2-el) 68.2 % LVLd %diff -13.34 % EDV(MOD-bp) 102.2 ml LVLs %diff -4.07 % ESV(MOD-bp) 30.7 ml EF(MOD-bp) 70.0 % SV(MOD-sp4) 66.3 ml SI(MOD-sp4) 34.5 ml/m\S\2 SV(MOD-sp2) 63.5 ml SI(MOD-sp2) 33.0 ml/m\S\2 SV(MOD-bp) 71.5 ml SI(MOD-bp) 37.2 ml/m\S\2 SV(sp4-el) 68.6 ml SI(sp4-el) 35.6 ml/m\S\2 SV(sp2-el) 64.1 ml SI(sp2-el) 33.3 ml/m\S\2 Doppler Measurements and Calculations MV E max sena 70.2 cm/sec MV A max sena 85.0 cm/sec MV E/A 0.83 MV dec time 0.26 sec Ao V2 max 142.4 cm/sec Ao max PG 8.1 mmHg Ao max PG (full) 3.5 mmHg AURA(V,A) 1.8 cm\S\2 AURA(V,D) 1.8 cm\S\2 LV V1 max PG 4.6 mmHg LV V1 max 107.4 cm/sec PA V2 max 79.3 cm/sec PA max PG 2.5 mmHg PI end-d sena 90.6 cm/sec TR max sena 250.2 cm/sec
[2017-09-24 11:46] VITALS: BP 114/68; PULSE 62; TEMP 36.9; O2SAT 95
[2017-09-24] MEDS ORDERED: LORAZEPAM 0.5 MG TAB ONE (11:49)
--- NOTE | 2017-09-24 13:10 | Discharge Summary ---
Discharge Summary Date of Service Sep 24, 2017. Discharge Summary Admission Date: Sep 23, 2017 at 23:58 Discharge Date: Sep 24, 2017 Discharge Disposition: Home Principal Diagnosis: Transient Global Amnesia Problems/Secondary Diagnoses: 1) Diabetes Mellitus Type 2 2) Hypokalemia 3) Thyroid nodule Immunizations: Have You Had Influenza Vaccine: Yes Influenza Vaccine Date: Jul 28, 2010 History of Tetanus Vaccine?: Yes Tetanus Immunization Date: Oct 28, 2006 History of Pneumococcal: No History of Hepatitis B Vaccine: No Procedures: CT SCAN OF THE BRAIN WITHOUT IV CONTRAST CLINICAL HISTORY: Change in mental status. COMPARISON STUDY: CT of the brain dated 10/18/2015. TECHNIQUE: Unenhanced axial CT scan of the brain is performed from the vertex to the skull base. CT DOSE: 537.48 mGy.cm FINDINGS: Brain parenchyma: There are age-related involutional changes noting mild subcortical and periventricular microangiopathic change. There is no hemorrhage, mass effect, or evidence of acute territorial ischemia by CT criteria. Gaming-white matter is preserved. No extra-axial fluid collection is seen. Ventricles, sulci, cisterns: Prominent secondary to involutional change. Intracranial vasculature: There is atherosclerotic calcification of the cavernous carotid and vertebral arteries. Calvarium: Unremarkable. Sinuses and mastoids: The visualized paranasal sinuses are clear. The mastoid air cells are well pneumatized. Orbits: The bony orbits are grossly intact. There is evidence of bilateral ocular lens surgery. IMPRESSION: There is no hemorrhage, mass effect, or evidence of acute territorial ischemia by CT criteria. BRAIN COMBO HISTORY: 72 years-old Female Stroke acute strokelike symptoms with memory loss COMPARISON: CT head 09/23/2017, MRI the brain 10/18/2015 TECHNIQUE: Multiplanar multisequence MRI the brain was obtained both with and without the use of 9 mL Gadavist FINDINGS: There is no restricted diffusion to suggest acute infarction. The midline structures including the ovaries close and, brainstem, optic chiasm and pituitary and pineal glands are unremarkable in the sagittal T1 series. There is no cerebellar tonsillar herniation. Mild degenerative changes of the imaged upper cervical spine. There is no acute intracranial hemorrhage, midline shift, abnormal extra-axial collections, hydrocephalus or intracranial mass. Moderate atrophy with ex vacuo tracheomegaly. Scattered foci of a ventricular subcortical T2/FLAIR prolongation redemonstrated compatible with chronic microvascular ischemic changes, generally stable from comparison study. There is no abnormal intra-axial or extra-axial enhancement identified. The major flow voids at the level of the skull base appear patent. Mastoid air cells are clear. Minimal nasal turbinate and ethmoid sinus mucosal thickening. Prior bilateral cataract repair. Scalp, calvarium and soft tissues are unremarkable. IMPRESSION: 1. No acute intracranial abnormality identified. No acute infarction, hemorrhage or abnormal enhancement. 2. Atrophy with chronic microvascular ischemic changes. CAROTID DOPPLER NECK ART CLINICAL HISTORY: 72 years-old Female with Stroke. Acute strokelike symptoms COMPARISON: CT head 09/23/2017, carotid Doppler 10/18/2015 TECHNIQUE: Multiple real time sonographic images of the carotid bifurcations were obtained assessing gaming scale, color Doppler and spectral wave form appearance FINDINGS: RIGHT INTERNAL CAROTID: The peak systolic velocity measured 48 cm/sec. The end diastolic velocity measured 11 cm/sec. The ICA to CCA ratio measured 0.8 which correlates with a stenosis of 0-50%. Moderate mixed plaquing of the right carotid ball and proximal right ICA. LEFT INTERNAL CAROTID: The peak systolic velocity measured 93 cm/sec. The end diastolic velocity measured 24 cm/sec. The ICA to CCA ratio measured 1.0 which correlates with a stenosis of 0-50%. Mild mixed plaquing of the left carotid bulb and proximal left ICA. There is normal antegrade vertebral flow bilaterally. Incidental note is made of a solid left thyroid nodule which is hypoechoic, 2.7 x 1.5 x 2.1 cm. IMPRESSION: 1. Moderate right and mild left carotid bulb atherosclerotic plaquing without hemodynamically significant stenosis. 2. Normal antegrade vertebral flow bilaterally. 3. Incidental note is made of a solid left thyroid nodule which is hypoechoic, 2.7 x 1.5 x 2.1 cm. ECHO * Compared with 10/18/15 study, no significnt change. * The left ventricle is normal in size. * There is normal left ventricular wall thickness. * Left ventricular systolic function is normal. * Ejection Fraction = 65-70%. * The left ventricular wall motion is normal. * Grade I diastolic dysfunction, (abnormal relaxation pattern). * Apical echodensity most consistent with trabeculae. Consultations: Neurology - Dr. Nuñez Medication Reconciliation New Medications: Clopidogrel (Plavix) 75 Mg Tab 75 MG PO DAILY for 30 Days, #30 TAB 3 Refills Continued Medications: Carvedilol (Coreg) 25 Mg Tab 25 MG PO BID, TAB Hydrochlorothiazide (Hydrochlorothiazide) 12.5 Mg Tab 1 TAB PO DAILY, TAB 3 Refills Irbesartan (Irbesartan) 150 Mg Tab 150 MG PO DAILY Metformin Hcl (Glucophage Ext Rel) 1,000 Mg Tab 1000 MG PO DAILY, TAB Misc Natural Products (Glucosamine Chondroitin T) 1 Tab Tab 1 TAB PO BID Multivitamin (Multivitamin) Tab 1 TAB PO DAILY, TAB Sertraline HCl (Sertraline HCl) 25 Mg Tab 25 MG PO DAILY Discontinued Medications: Aspirin (Aspirin Ec) 81 Mg Tab 81 MG PO DAILY Discharge Exam Ms. Keith reports she feels well today. She denies headache, n/v, weakness, difficulty with speech or gait, recent illnesses or any new episodes of confusion. She states she would like to be discharged. Review of Systems: Constitutional: No fever, No chills Eyes: No diplopia Respiratory: No cough, No sputum Abdomen: No pain, No nausea, No vomiting Neurologic: + memory loss, No paralysis, No weakness, No numbness/tingling, No vertigo Physical Exam: General Appearance: WD/WN, no apparent distress Respiratory/Chest: chest non-tender, lungs clear, normal breath sounds, no respiratory distress, no accessory muscle use Cardiovascular: regular rate, rhythm, no edema, no gallop, no JVD, no murmur , normal peripheral pulses Abdomen / GI: normal bowel sounds, non tender, soft, no organomegaly, no pulsatile mass Extremities: normal inspection, no calf tenderness Neurologic/Psychiatric: morning nanny II-XII nml as tested, no motor/sensory deficits , alert, normal mood/affect, normal reflexes, oriented x 3 Hospital Course Ms. Keith was admitted to [facility] for an episode of confusion that occurred whilst she was at a [employer] with her . She was unable to recall details such as where she was, who had refilled her glass, and that she had brought food to the [employer]. She was able to recall her name and birthday, and did not have any other neurological symptoms such as speech difficulties, gait abnormalities, weakness in any of the limbs, seizures, headaches, n/v, syncopal episodes. Of note, she has had a similar episode 2 years ago that was more severe. A full workup was conducted then and she was diagnosed with transient global amnesia. She was seen by Dr. Nuñez, a neurologist, who stated that this was likely another episode of transient global amnesia, and that no further neurological workup was necessary. Her imaging results are reported above. Other problems discussed include: 1) Diabetes Her HbA1c in the hospital was 5.5 - will defer decision as to whether or not to d/c her metformin to her PCP. She was counselled on continuing to make positive lifestyle changes to hopefully stay an ex-diabetic. 2) Cholesterol Her LDL was 96 and non-HDL was 118. Her 10 year ASCVD risk is 11.6%, even with her being counted as an ex-diabetic, and therefore we discussed with her the benefits of putting her on a statin. She states she has had muscle aches with 2 statins, and therefore we will defer the decision of which statin to start her on to her PCP given the low cross reactivity between statins. 3) Aspirin Given that she had this episode on aspirin, and that this could be a precursor to a TIA, we switched her aspirin to a daily plavix. 4) Thyroid Her ultrasound revealed a thyroid nodule, which can be worked up further by her PCP. Resident Physician Supervision Note: I interviewed and examined the patient. Discussed with Dr. Ramirez and agree with findings and plan as documented in the note. Any exceptions or clarifications are listed here: None Documented By: Delvin Jones feeling better no further episodes. vitals noted nad breathing unlabored no focal neuro deficits, labs and studies noted and discussed w pt transient global amnesia - have to view as TIA type episode. change asa to plavix. follow BP as outpt. lipids not at goal for event - but has tried and failed multiple statins and she's not sure which - is willing to try a different one given overall low risk of cross reactivity - but will have to defer to PCP on which she's tried before. A1c discussed can consider cessation of metformin. discussed lifestyle change as well thyroid nodule - outpt f/u stable for home Total Time Spent: Greater than 30 minutes This includes examination of the patient, discharge planning, medication reconciliation, and communication with other providers. Discharge Instructions Please refer to the electronic Patient Visit Report (Discharge Instructions) for additional information. Additional Copies To Pranav Montez M.D. Resident Tracking Resident Involvement: Resident Care Provided Care Provided: [facility]
--- NOTE | 2017-09-24 13:53 | DIAGNOSTIC IMAGING REPORT ---
BRAIN COMBO HISTORY: 72 years-old Female Stroke acute strokelike symptoms with memory loss COMPARISON: CT head 09/23/2017, MRI the brain 10/18/2015 TECHNIQUE: Multiplanar multisequence MRI the brain was obtained both with and without the use of 9 mL Gadavist FINDINGS: There is no restricted diffusion to suggest acute infarction. The midline structures including the ovaries close and, brainstem, optic chiasm and pituitary and pineal glands are unremarkable in the sagittal T1 series. There is no cerebellar tonsillar herniation. Mild degenerative changes of the imaged upper cervical spine. There is no acute intracranial hemorrhage, midline shift, abnormal extra-axial collections, hydrocephalus or intracranial mass. Moderate atrophy with ex vacuo tracheomegaly. Scattered foci of a ventricular subcortical T2/FLAIR prolongation redemonstrated compatible with chronic microvascular ischemic changes, generally stable from comparison study. There is no abnormal intra-axial or extra-axial enhancement identified. The major flow voids at the level of the skull base appear patent. Mastoid air cells are clear. Minimal nasal turbinate and ethmoid sinus mucosal thickening. Prior bilateral cataract repair. Scalp, calvarium and soft tissues are unremarkable. IMPRESSION: 1. No acute intracranial abnormality identified. No acute infarction, hemorrhage or abnormal enhancement. 2. Atrophy with chronic microvascular ischemic changes. The above report was generated using voice recognition software. It may contain grammatical, syntax or spelling errors. Electronically signed by: Johnny Burgess M.D. 09/24/2017 1:52 PM Dictated Date/Time: 09/24/2017 1:46 PM
[2017-09-24] MEDS ORDERED: ATOR-24 PO (14:05)
[2017-09-24 15:27] VITALS: BP 162/80; PULSE 54; TEMP 36.3; O2SAT 97
[2017-09-24] MEDS ORDERED: CLOP1TAB15 PO (15:28)
== END 2017-09-24 16:12 | disposition home or self-care (01) | DRG 72 ==
LOC: C.EDB 22:02 → C.2T 23:58 → ENRESERV 09-24 00:04
PROVIDERS: ADMIT Hospitalist; ATTEND Family Medicine
DX: G45.4 Transient global amnesia (principal); E11.9 Type 2 diabetes mellitus without complications; E87.6 Hypokalemia; I10 Essential (primary) hypertension; F32.9 Major depressive disorder, single episode, unspecified; Z79.82 Long term (current) use of aspirin; Z79.84 Long term (current) use of oral hypoglycemic drugs; Z79.899 Other long term (current) drug therapy; Z82.3 Family history of stroke

== ENCOUNTER → 2017-11-30 | Outpatient (CLI) | payer BC ==
[~2017-11-30] MED LIST changes: -ASPEC81 PO; +CARV25TA PO; +CLOP1TAB15 PO; -CRG25 PO; -ESCI1TAB10 PO; -GLC500 PO; -HYDC25 PO; +HYDR12.55 PO; +IRBE1TAB48 PO; +METF1TAB53 PO; +MISC1TAB85 PO; -MOME50SP5; -MTRUNK PO; +MULT-506 PO; -PANT40TA PO; +SERT1TAB88 PO; -SIMV40TA2 PO
--- NOTE | 2017-11-30 10:14 | DIAGNOSTIC IMAGING REPORT ---
GUIDANCE NEEDLE PLACEMENT CLINICAL HISTORY: THYROID NODULE TECHNIQUE: Ultrasound-guided fine-needle aspiration COMPARISON STUDY: Carotid Doppler 09/24/2017 FINDINGS: Following description of procedure and informed consent, a total of 3 passes with a 25-gauge needle were made to the nodule of the left thyroid. Pathology indicated a limited number of cells. Pathology is pending. IMPRESSION: Fine-needle aspiration of the dominant left thyroid nodule x3. Pathology is pending. The above report was generated using voice recognition software. It may contain grammatical, syntax or spelling errors. Electronically signed by: Coleman David M.D. 11/30/2017 10:13 AM Dictated Date/Time: 11/30/2017 10:11 AM
== END | disposition home or self-care (01) ==
LOC: C.ULTR 09:17
PROVIDERS: ATTEND Family Medicine
DX: E04.1 Nontoxic single thyroid nodule (principal)

== ENCOUNTER → 2018-01-18 | Outpatient (CLI) | payer BC ==
--- NOTE | 2018-01-19 07:50 | MAMMOGRAPHY REPORT ---
BILATERAL DIGITAL SCREENING MAMMOGRAM TOMOSYNTHESIS WITH CAD: 01/18/2018 CLINICAL HISTORY: Routine screening. Patient has no complaints. TECHNIQUE: Breast tomosynthesis in addition to standard 2D mammography was performed. Current study was also evaluated with a Computer Aided Detection (CAD) system. COMPARISON: Comparison is made to exams dated: 01/17/2017 mammogram, 01/13/2016 mammogram, 01/09/2015 u ltrasound, 01/09/2015 mammogram - [facility], 03/04/2009, and 11/23/2006. BREAST COMPOSITION: The tissue of both breasts is almost entirely fatty. FINDINGS: The parenchymal pattern is unchanged. No developing mass, architectural distortion or clus ter of suspicious microcalcifications is seen in either breast. IMPRESSION: ACR BI-RADS CATEGORY 2: BENIGN There is no mammographic evidence of malignancy. A 1 year screening mammogram is recommended. The pa tient will receive written notification of the results. Approximately 10% of breast cancers are not detected with mammography. A negative mammographic report should not delay biopsy if a clinically suggestive mass is present. Bobbi Lopez M.D. ay/:01/18/2018 08:06:05 Impregnation Operator: Aubrie Cowan, [facility] letter sent: Normal 1/2 BI-RADS Code: ACR BI-RADS Category 2: Benign
== END | disposition home or self-care (01) ==
LOC: C.MAMM 07:13
PROVIDERS: ATTEND Family Medicine
DX: Z12.31 Encounter for screening mammogram for malignant neoplasm of breast (principal)

== ENCOUNTER 2018-02-19 19:09 | Emergency (ER) | payer BC ==
[~2018-02-19] VITALS: Ht 157.5 cm; Wt 87.2 kg
[2018-02-19] MEDS ORDERED: ACETAMINOPHEN 500 MG TAB PO STA (19:27)
[2018-02-19] MEDS ORDERED: SODIUM CHLORIDE 0.9% 1000ML 1,000 ML IV STA ×2 (19:27→21:10)
[2018-02-19] MEDS ORDERED: KETOROLAC TROMETHAMINE 30 MG/ML VIAL IV STA (19:27)
[2018-02-19] MEDS ORDERED: CEFT1INJ6 (19:42)
[2018-02-19] MEDS ORDERED: ACET-1256 PO (19:42)
[2018-02-19] MEDS ORDERED: CLOP1TAB15 PO (19:42)
[2018-02-19 19:54] LABS: BASO % 0.3 %; BASO ABS # 0.04 K/uL (0-0.2); EOS % 1.2 %; EOS ABS # 0.17 K/uL (0-0.5); HEMATOCRIT 39.7 % (37-47); HEMOGLOBIN 14.2 g/dL (12.0-16.0); IG# 0.07 K/uL (0.00-0.02); LYMPH % 3.4 %; LYMPH ABS # 0.49 K/uL (1.2-3.4); MEAN CELL VOLUME 88.8 fL (80-100); MEAN CORPUSCULAR HEMOGLOBIN 31.8 pg (25-34); MEAN CORPUSCULAR HGB CONC 35.8 g/dl (32-36); MONO % 3.7 %; MONO ABS # 0.53 K/uL (0.11-0.59); NEUT % 90.9 %; NEUT ABS # 13.03 K/uL (1.4-6.5); PLATELET COUNT 202 K/uL (130-400); RED CELL DISTRIBUTION WIDTH CV 12.8 % (11.5-14.5); RED CELL DISTRIBUTION WIDTH SD 41.3 fL (36.4-46.3); WHITE BLOOD COUNT 14.33 K/uL (4.8-10.8)
--- NOTE | 2018-02-19 19:56 | DIAGNOSTIC IMAGING REPORT ---
SINGLE VIEW CHEST CLINICAL HISTORY: Sepsis FINDINGS: An AP, portable, upright chest radiograph is compared to study dated 10/18/2015. Correlation is made with radiographs of the right shoulder dated 01/24/2017. The examination is degraded by portable technique and patient rotation. The heart is mildly enlarged and there is atherosclerotic calcification of the thoracic aorta. The pulmonary vasculature is noncongested. There is minimal bibasilar atelectasis. No airspace consolidation or large pleural effusion is identified. No pneumothorax is seen. The skeletal structures are osteopenic. There is age indeterminant posttraumatic deformity suggested involving the right humeral neck. Degenerative changes seen throughout the thoracic spine. IMPRESSION: 1. Mild cardiac enlargement with no acute cardiopulmonary abnormality. 2. There is age indeterminant posttraumatic deformity suggested involving the right humeral neck. Clinical correlation will be required. Electronically signed by: Saurabh Whitfield M.D. 02/19/2018 7:54 PM Dictated Date/Time: 02/19/2018 7:52 PM
[2018-02-19 19:59] LABS: ISTAT CREATININE 0.6 mg/dl (0.6-1.3); ISTAT IONIZED CALCIUM 1.09 mmol/l (1.12-1.32)
[2018-02-19 20:07] VITALS: Ht 157.5 cm; Wt 87.2 kg
[2018-02-19 20:07] LABS: CALCIUM 8.6 mg/dl (8.5-10.1); CREATININE 0.78 mg/dl (0.60-1.20)
[2018-02-19 20:10] LABS: TOTAL PROTEIN 7.4 gm/dl (6.4-8.2)
[2018-02-19] MEDS ORDERED: MAGNESIUM SULFATE 1GM / D5W 1 GM BAG IV STA (20:15)
[2018-02-19] MEDS ORDERED: OPTIRAY 320 IV PRN (20:30)
--- NOTE | 2018-02-19 20:36 | DIAGNOSTIC IMAGING REPORT ---
CT SCAN OF THE NECK WITH IV CONTRAST CLINICAL HISTORY: Postoperative pain and swelling. Fever. Reported history of partial thyroidectomy. COMPARISON STUDY: No priors. TECHNIQUE: Following the IV administration of 117 cc of Optiray 320, CT scan of the soft tissues of the neck was performed from the skull base to the upper chest. Images are reviewed in the axial, sagittal, and coronal planes. IV contrast was administered without complication. A dose lowering technique was utilized adhering to the principles of ALARA. CT DOSE: 490.78 mGy.cm FINDINGS: Thyroid gland and soft tissues: The left lobe of the thyroid gland and isthmus are surgically absent. The right thyroid lobe is normal in appearance. There is a large complex and peripherally enhancing multiloculated fluid collection identified centered in the left thyroid bed. This extends into the region of the thyroid isthmus, and protrudes anteriorly nearly reaching the dermal surface. The loculated component in the left thyroid lobe operative bed measures approximately 4.5 x 4 x 4.5 cm as seen on image #242. The collection extends anteriorly, and the component in the ventral soft tissues measures approximately 2 x 3.5 x 5 cm as seen on image #237. These collections appear to communicate with each other as seen on image #243. There is extensive surrounding inflammatory stranding involving the superficial and deep soft tissues suggesting cellulitis. Pharynx: There is extensive inflammatory stranding involving the superficial and deep soft tissues of the neck surrounding the large multiloculated collection centered in the left thyroid operative bed as above. Inflammatory change extends from the superior mediastinum into the left pharynx at the level of C2. There is extensive inflammatory stranding involving the parapharyngeal soft tissues bilaterally, left greater than right. Mild edema is also seen in the retropharyngeal soft tissues. No retropharyngeal fluid collection is identified. Inflammatory stranding is also seen extending along the left carotid artery and jugular vein. The pharyngeal airway is patent. There is no evidence of mass lesion. The vocal cords are symmetric. The epiglottis is normal. Lymphadenopathy: No cervical lymphadenopathy is seen Salivary glands: The parotid and submandibular glands are within normal limits. Brain parenchyma: The visualized brain parenchyma at the skull base is normal in appearance. Vascular structures: The carotid arteries and jugular veins are patent bilaterally. Atherosclerotic calcification is noted in the carotid bulbs. Skeletal structures: The Skeletal structures are osteopenic. Imaged portions of the calvarium at the skull base are within normal limits. The cervical spine appears intact noting multilevel spondylosis. Sinuses and mastoids: The visualized paranasal sinuses are clear. The mastoid air cells are well pneumatized. Orbits: The bony orbits are intact as imaged. Orbital contents are normal in appearance noting bilateral ocular lens implants. Lung apices: Visualized apical lung parenchyma is clear. IMPRESSION: 1. The left thyroid lobe and isthmus are surgically absent. 2. There is a large, multiloculated, and peripherally enhancing fluid collection centered in the left thyroid operative bed as detailed above. A large loculated component extends into the anterior soft tissues, nearly reaching the dermal surface of the ventral neck. This is consistent with abscess. 3. There is extensive inflammatory change involving the superficial and deep soft tissues in the left neck centered around this collection. Inflammatory stranding extends from the superior mediastinum, throughout the parapharyngeal soft tissues (left greater than right), and also involves the retropharyngeal soft tissues. This is consistent with severe infection, and emergent ENT assessment is advised as this places the patient at risk for airway compromise. 4. The airway is patent at this time. No retropharyngeal fluid collection is identified. 5. Inflammatory stranding extends along the course of the left carotid artery and the left jugular vein. The jugular veins are patent. 6. Additional findings as above. Electronically signed by: Saurabh Whitfield M.D. 02/19/2018 8:35 PM Dictated Date/Time: 02/19/2018 8:21 PM
[2018-02-19] MEDS ORDERED: PIPERACILLIN/TAZOBACTAM 4.5 GM/100ML D5W IV STA (20:38)
[2018-02-19] MEDS ORDERED: VANCOMYCIN IV 1,800 MG in SODIUM CHLORIDE 0.9% 500ML 500 ML IV STA (20:38)
[2018-02-19] MEDS ORDERED: VANCOMYCIN CONSULT ACTIVE PRN (20:45)
[2018-02-19] MEDS ORDERED: POTASSIUM CHLR 10 MEQ / WTR 100 ML IV STA (20:45)
--- NOTE | 2018-02-19 21:52 | EMERGENCY ROOM VISIT NOTE ---
History Report prepared by Mcihael: Jaci Ontiveros Under the Supervision of: Dr. Joey Bucio D.O. First contact with patient: 19:16 Chief Complaint: OTHER COMPLAINT Stated Complaint: PARTIAL TYROIDCTOMY History of Present Illness The patient is a 72 year old female who presents to the Emergency Room with complaints of persistent fever starting around 1200 today. The patient had the left side of her thyroid removed 1.5 weeks ago. There was a nodule which was benign. The patient was feeling well up until this morning. Around 1200 today, she started feeling unwell, like she might have an infection. She found that she had a fever of 102.7. She has noticed some swelling around the surgical site , but no drainage. She was seen at the walk in clinic today at 1500 who thought that she might have an infection. She was given a shot of antibiotics and sent home with a prescription. Cultures were taken. She was unable to fill her prescription because her pharmacy had closed. She denies any cough, runny nose, urinary symptoms, abdominal pain, or vomiting. She has a history of hypertension , appendectomy, and cholecystectomy. She denies any history of cancer. She does not smoke. She drinks 1 glass of wine a day. She is on Plavix. She had 2 Tylenol at 0730 this morning. She has not taken anything else. Source of History: patient Onset: 1200 Symptom Intensity: 102.7 Quality: other (fever) Timing: other (persistent) Associated Symptoms: No cough, No vomiting, No abdominal pain, No urinary symptoms Review of Systems See HPI for pertinent positives & negatives. A total of 10 systems reviewed and were otherwise negative. Past Medical & Surgical Medical Problems: (1) Amnesia (retrograde) (2) Confusion after a seizure (3) TIA (transient ischemic attack) (4) Transient global amnesia Family History Stroke MOTHER Social History Smoking Status: Former Smoker Drug Use: none Marital Status: Occupation Status: retired Current/Historical Medications Scheduled Carvedilol (Coreg), 25 MG PO BID Clopidogrel (Plavix), 75 MG PO DAILY Hydrochlorothiazide (Hydrochlorothiazide), 1 TAB PO DAILY Irbesartan (Irbesartan), 150 MG PO DAILY Misc Natural Products (Glucosamine Chondroitin T), 1 TAB PO BID Multivitamin (Multivitamin), 1 TAB PO DAILY Sertraline HCl (Sertraline HCl), 25 MG PO DAILY Scheduled PRN Acetaminophen (Tylenol), 1,000 MG PO DIRECTED PRN for Pain or Fever Miscellaneous Medications Ceftriaxone Sodium (Rocephin), Unknown Dose Allergies Coded Allergies: Erythromycin (Verified Allergy, Intermediate, RASH, 02/19/18) MAGNUS Inhibitors (Verified Adverse Reaction, Mild, COUGH, 02/19/18) Physical Exam Vital Signs Date Time Temp Pulse Resp B/P (MAP) Pulse Ox O2 Delivery O2 Flow Rate FiO2 02/19/18 22:34 36.9 85 20 119/57 96 Room Air 02/19/18 20:48 38.0 95 20 138/71 93 Room Air 02/19/18 19:55 39.4 104 02/19/18 19:30 118 02/19/18 19:12 39.2 123 18 131/79 92 Room Air Physical Exam GENERAL: Patient is awake, alert, and in no acute distress. Patient is resting comfortably and showing no signs of anxiety EYES: The conjunctivae are clear. The pupils are round and reactive. EARS, NOSE, MOUTH AND THROAT: The nose is without any evidence of any deformity. Mucous membranes are moist tongue is midline NECK: There was a low horizontal surgical site noted at the base of the neck. There was swelling and erythema noted. There was a clear drainage appreciated. Cultures were obtained at this site. RESPIRATORY: Normal respiratory effort is noted there is no evidence of wheezing rhonchi or rales CARDIOVASCULAR: Tachycardic, but regular. No definite murmur was noted. GASTROINTESTINAL: The abdomen is soft. Bowel sounds are present in all quadrants. Abdomen is nontender MUSCULOSKELETAL/EXTREMITIES: There is no evidence of gross deformity full range of motion is noted in the hips and shoulders SKIN: There is no obvious evidence of any rash. There are no petechiae, pallor or cyanosis noted. NEUROLOGIC: Patient is awake alert and oriented x3 Medical Decision & Procedures ER Provider Diagnostic Interpretation: X-ray results as stated below per interpretation by me and the radiologist. Radiology results as stated below per my review and radiologist interpretation: SINGLE VIEW CHEST CLINICAL HISTORY: Sepsis FINDINGS: An AP, portable, upright chest radiograph is compared to study dated 10/18/2015. Correlation is made with radiographs of the right shoulder dated 01/24/2017. The examination is degraded by portable technique and patient rotation. The heart is mildly enlarged and there is atherosclerotic calcification of the thoracic aorta. The pulmonary vasculature is noncongested. There is minimal bibasilar atelectasis. No airspace consolidation or large pleural effusion is identified. No pneumothorax is seen. The skeletal structures are osteopenic. There is age indeterminant posttraumatic deformity suggested involving the right humeral neck. Degenerative changes seen throughout the thoracic spine. IMPRESSION: 1. Mild cardiac enlargement with no acute cardiopulmonary abnormality. 2. There is age indeterminant posttraumatic deformity suggested involving the right humeral neck. Clinical correlation will be required. Electronically signed by: Saurabh Whitfield M.D. 02/19/2018 7:54 PM Dictated Date/Time: 02/19/2018 7:[address] SCAN OF THE NECK WITH IV CONTRAST CLINICAL HISTORY: Postoperative pain and swelling. Fever. Reported history of partial thyroidectomy. COMPARISON STUDY: No priors. TECHNIQUE: Following the IV administration of 117 cc of Optiray 320, CT scan of the soft tissues of the neck was performed from the skull base to the upper chest. Images are reviewed in the axial, sagittal, and coronal planes. IV contrast was administered without complication. A dose lowering technique was utilized adhering to the principles of ALARA. CT DOSE: 490.78 mGy.cm FINDINGS: Thyroid gland and soft tissues: The left lobe of the thyroid gland and isthmus are surgically absent. The right thyroid lobe is normal in appearance. There is a large complex and peripherally enhancing multiloculated fluid collection identified centered in the left thyroid bed. This extends into the region of the thyroid isthmus, and protrudes anteriorly nearly reaching the dermal surface. The loculated component in the left thyroid lobe operative bed measures approximately 4.5 x 4 x 4.5 cm as seen on image #242. The collection extends anteriorly, and the component in the ventral soft tissues measures approximately 2 x 3.5 x 5 cm as seen on image #237. These collections appear to communicate with each other as seen on image #243. There is extensive surrounding inflammatory stranding involving the superficial and deep soft tissues suggesting cellulitis. Pharynx: There is extensive inflammatory stranding involving the superficial and deep soft tissues of the neck surrounding the large multiloculated collection centered in the left thyroid operative bed as above. Inflammatory change extends from the superior mediastinum into the left pharynx at the level of C2. There is extensive inflammatory stranding involving the parapharyngeal soft tissues bilaterally, left greater than right. Mild edema is also seen in the retropharyngeal soft tissues. No retropharyngeal fluid collection is identified. Inflammatory stranding is also seen extending along the left carotid artery and jugular vein. The pharyngeal airway is patent. There is no evidence of mass lesion. The vocal cords are symmetric. The epiglottis is normal. Lymphadenopathy: No cervical lymphadenopathy is seen Salivary glands: The parotid and submandibular glands are within normal limits. Brain parenchyma: The visualized brain parenchyma at the skull base is normal in appearance. Vascular structures: The carotid arteries and jugular veins are patent bilaterally. Atherosclerotic calcification is noted in the carotid bulbs. Skeletal structures: The Skeletal structures are osteopenic. Imaged portions of the calvarium at the skull base are within normal limits. The cervical spine appears intact noting multilevel spondylosis. Sinuses and mastoids: The visualized paranasal sinuses are clear. The mastoid air cells are well pneumatized. Orbits: The bony orbits are intact as imaged. Orbital contents are normal in appearance noting bilateral ocular lens implants. Lung apices: Visualized apical lung parenchyma is clear. IMPRESSION: 1. The left thyroid lobe and isthmus are surgically absent. 2. There is a large, multiloculated, and peripherally enhancing fluid collection centered in the left thyroid operative bed as detailed above. A large loculated component extends into the anterior soft tissues, nearly reaching the dermal surface of the ventral neck. This is consistent with abscess. 3. There is extensive inflammatory change involving the superficial and deep soft tissues in the left neck centered around this collection. Inflammatory stranding extends from the superior mediastinum, throughout the parapharyngeal soft tissues (left greater than right), and also involves the retropharyngeal soft tissues. This is consistent with severe infection, and emergent ENT assessment is advised as this places the patient at risk for airway compromise. 4. The airway is patent at this time. No retropharyngeal fluid collection is identified. 5. Inflammatory stranding extends along the course of the left carotid artery and the left jugular vein. The jugular veins are patent. 6. Additional findings as above. Electronically signed by: Saurabh Whitfield M.D. 02/19/2018 8:35 PM Dictated Date/Time: 02/19/2018 8:21 PM Laboratory Results 02/19/18 19:31 Red Blood Count 4.47, Mean Corpuscular Volume 88.8, Mean Corpuscular Hemoglobin 31.8, Mean Corpuscular Hemoglobin Concent 35.8, Mean Platelet Volume 10.0, Neutrophils (%) (Auto) 90.9, Lymphocytes (%) (Auto) 3.4, Monocytes (%) (Auto) 3.7, Eosinophils (%) (Auto) 1.2, Basophils (%) (Auto) 0.3, Neutrophils # (Auto) 13.03, Lymphocytes # (Auto) 0.49, Monocytes # (Auto) 0.53, Eosinophils # (Auto) 0.17, Basophils # (Auto) 0.04 02/19/18 19:31 Test 02/19/18 19:31 02/19/18 19:39 02/19/18 19:48 White Blood Count 14.33 K/uL (4.8-10.8) Red Blood Count 4.47 M/uL (4.2-5.4) Hemoglobin 14.2 g/dL (12.0-16.0) Hematocrit 39.7 % (37-47) Mean Corpuscular Volume 88.8 fL (80-100) Mean Corpuscular Hemoglobin 31.8 pg (25-34) Mean Corpuscular Hemoglobin Concent 35.8 g/dl (32-36) Platelet Count 202 K/uL (130-400) Mean Platelet Volume 10.0 fL (7.4-10.4) Neutrophils (%) (Auto) 90.9 % Lymphocytes (%) (Auto) 3.4 % Monocytes (%) (Auto) 3.7 % Eosinophils (%) (Auto) 1.2 % Basophils (%) (Auto) 0.3 % Neutrophils # (Auto) 13.03 K/uL (1.4-6.5) Lymphocytes # (Auto) 0.49 K/uL (1.2-3.4) Monocytes # (Auto) 0.53 K/uL (0.11-0.59) Eosinophils # (Auto) 0.17 K/uL (0-0.5) Basophils # (Auto) 0.04 K/uL (0-0.2) RDW Standard Deviation 41.3 fL (36.4-46.3) RDW Coefficient of Variation 12.8 % (11.5-14.5) Immature Granulocyte % (Auto) 0.5 % Immature Granulocyte # (Auto) 0.07 K/uL (0.00-0.02) Erythrocyte Sedimentation Rate 6 mm/hr (0-21) Est Creatinine Clear Calc Drug Dose 68.8 ml/min Estimated GFR () 89.3 Estimated GFR (Non- 77.0 BUN/Creatinine Ratio 29.0 (10-20) Calcium Level 8.6 mg/dl (8.5-10.1) Magnesium Level 1.3 mg/dl (1.8-2.4) Total Bilirubin 0.8 mg/dl (0.2-1) Aspartate Amino Transf (AST/SGOT) 22 U/L (15-37) Alanine Aminotransferase (ALT/SGPT) 37 U/L (12-78) Alkaline Phosphatase 86 U/L (45-117) C-Reactive Protein 0.94 mg/dl (0-0.29) Total Protein 7.4 gm/dl (6.4-8.2) Albumin 4.0 gm/dl (3.4-5.0) Globulin 3.4 gm/dl (2.5-4.0) Albumin/Globulin Ratio 1.2 (0.9-2) Thyroid Stimulating Hormone (TSH) 1.880 uIu/ml (0.300-4.500) Bedside Lactic Acid Venous 1.84 mmol/L (0.90-1.70) Bedside Hemoglobin 13.6 g/dl (12.0-16.0) Bedside Hematocrit 40 % (37-47) Bedside Sodium 139 mEq/L (135-144) Bedside Potassium 3.0 mEq/L (3.3-5.0) Bedside Chloride 103 mEq/L (101-112) Bedside Total CO2 21 mEq/l (24-31) Anion Gap 19.0 mmol/L (16-25) Bedside Blood Urea Nitrogen 23 mg/dl (7-18) Bedside Creatinine 0.6 mg/dl (0.6-1.3) Bedside Glucose (other) 122 mg/dl (70-99) Bedside Ionized Calcium (Shadi) 1.09 mmol/l (1.12-1.32) Laboratory results per my review. Medications Administered Medications (Trade) Dose Ordered Sig/Loraine Route Start Time Stop Time Status Last Admin Dose Admin Sodium Chloride 1,000 ml @ 999 mls/hr Q1H1M STAT IV 02/19/18 19:27 02/19/18 20:27 DC 02/19/18 19:57 999 MLS/HR Acetaminophen (Tylenol Tab) 1,000 mg NOW STAT PO 02/19/18 19:27 02/19/18 19:30 DC 02/19/18 19:56 1,000 MG Ketorolac Tromethamine (Toradol Inj) 10 mg NOW STAT IV 02/19/18 19:27 02/19/18 19:30 DC 02/19/18 19:57 10 MG Magnesium Sulfate (Magnesium Sulfate 1gm / D5W) 2 gm NOW STAT IV 02/19/18 20:15 02/19/18 20:16 DC 02/19/18 20:45 2 GM Vancomycin HCl 1800 mg/Sodium Chloride 536 ml @ 200 mls/hr ONE STAT IV 02/19/18 20:38 02/19/18 23:18 DC 02/19/18 21:50 200 MLS/HR Piperacillin Sod/ Tazobactam Sod (Zosyn Iv) 4.5 gm NOW STAT IV 02/19/18 20:38 02/19/18 20:40 DC 02/19/18 21:05 4.5 GM Potassium Chloride 100 ml @ 100 mls/hr NOW STAT IV 02/19/18 20:45 02/19/18 21:44 DC 02/19/18 21:06 100 MLS/HR Sodium Chloride 1,000 ml @ 999 mls/hr Q1H1M STAT IV 02/19/18 21:10 02/19/18 22:10 DC 02/19/18 21:50 999 MLS/HR ED Course 1919: The patient was evaluated in room C6. A complete history and physical examination were performed. 1926: Toradol Inj 10 mg IV, Acetaminophen 1000 mg PO, NSS 1,000 ml @ 999 mls/hr IV. 2014: Magnesium Sulfate 2 gm IV. 2037: Zosyn Iv 4.5 gm IV, Vancomycin HCl 1800 mg/Sodium Chloride 536 ml @ 200 mls/hr IV. 2039: I reevaluated the patient. I updated her and family on the results. They would like to be transferred to [place]. 2044: Potassium Chloride 100 ml @ 100 mls/hr IV. 2105: I discussed the patient's case with Dr. Bashir, [facility] surgical oncology. She has accepted the patient for transfer. 2110: NSS 1,000 ml @ 999 mls/hr IV. 2120: I reevaluated the patient. I discussed results and treatment plan with them. They verbalizes agreement and understanding. The patient will be transferred for further management and care. Medical Decision Prior records reviewed and summarized as above. Triage Nursing notes reviewed. Additional history obtained from family. The patient's history was concerning for swelling and redness of the skin. Differential diagnosis: Etiologies such as cellulitis, abscess, MRSA infection, DVT, necrotizing fasciitis, dermatitis, drug eruption, as well as others were entertained.. The patient is a 72-year-old female who presented to the emergency department for an evaluation of swelling and fever to the patient recently had her thyroid removed for what was thought to be a malignancy however it turns out this was not a malignancy. The patient was seen at the clinic and was given a dose of IM medication that the daughter thinks was Rocephin. The patient appears to have signs of a postoperative abscess. CT the neck was obtained and showed very significant changes which include stranding in the deep space of the neck which were very worrisome for ongoing infection and possible early mediastinitis. I discussed patient's laboratory and radiographic studies with her. She was treated with IV fluids IV pain medicine as well as IV antibiotics. She did not have an acute airway involvement at this time. I discussed the patient's condition with her surgical team at [facility]. They have agreed to accept the patient in transfer for further management and disposition. I did offer to have the patient evaluated by our ENT group for possible immediate drainage of this postoperative abscess but the patient did not wish to be seen by our surgical group here and wanted to wait until she was seen by the [place] group after transfer. Medication Reconcilliation Current Medication List: was personally reviewed by me Blood Pressure Screening Patient's blood pressure: Normal blood pressure Consults Time Called: 2045 Consulting Physician: Dr. Bashir, [facility] surgical oncology Returned Call: [phone] I discussed the patient's case with her. She has accepted the patient for transfer. Impression Primary Impression: Post op infection Additional Impressions: Postoperative abscess Fever Scribe Attestation The scribe's documentation has been prepared under my direction and personally reviewed by me in its entirety. I confirm that the note above accurately reflects all work, treatment, procedures, and medical decision making performed by me. Departure Information Dispostion Transfer Acute Care Facility Referrals Pranav Montez M.D. (PCP) Patient Instructions My [facility] Problem Qualifiers Primary Impression: Post op infection Encounter type: initial encounter Qualified Codes: T81.4XXA - Infection following a procedure, initial encounter Additional Impressions: Postoperative abscess Encounter type: initial encounter Qualified Codes: T81.4XXA - Infection following a procedure, initial encounter Fever Fever type: unspecified Qualified Codes: R50.9 - Fever, unspecified
[2018-02-19 22:34] VITALS: BP 119/57; PULSE 85; TEMP 36.9; O2SAT 96
--- NOTE | 2018-02-22 11:51 | Pharmacy Progress Note ---
ED Pharmacist Culture FollowUp Date of Service: February 22, 2018. Patient presented to ED on 02/19 with fever and concern for surgical site infxn ( recent partial thyroidectomy). + swelling + erythema + clear drainage CT findings consistent with loculated fluid collection consistent w/ abscess, + superficial and deep soft tissue inflammation, severe infxn involving retropharyngeal, superior mediastinum + parapharyngeal soft tissues. Pt was transferred [place] [facility] [place]. I attempted to contact [facility] to [place] the cx results there, however I was not able to get confirmation if the patient was still admitted or discharged. I then attempted to contact the patient who did answer her phone. She stated she was taken to the OR for I+D of the abscess, was given IV ABX and was discharged yesterday AM w/ Rx for Augmentin 875mg PO BID and has a surgical drain in place. She states she has a f/u appointment w/ Dr Ginger Naqvi at [facility] [place]. Augmentin should cover the MSSA and the Pasturella multocida in the cx, however the coverage of CoN Staph is less reliable (only 52% isolates sensitive per [facility] antibiogram). I did contact Dr Naqvi's office and forwarded the cx results to fax number provided per their request: [phone]
== END 2018-02-19 23:30 | disposition short-term general hospital (02) ==
LOC: C.EDB 19:10 → C.EDC 23:30
DX: T81.4XXA Infection following a procedure, initial encounter (principal); R50.9 Fever, unspecified; Y83.6 Removal of other organ (partial) (total) as the cause of abnormal reaction of the patient, or of later complication, without mention of misadventure at the time of the procedure; Z87.891 Personal history of nicotine dependence; Z79.899 Other long term (current) drug therapy; Z88.1 Allergy status to other antibiotic agents